=== PATIENT | female | born 1980 | race Two or more races ===

== ENCOUNTER 2018-06-29 17:51 | Inpatient (IN) | payer MEDICAID ==
[~2018-06-29] VITALS: Ht 170.2 cm; Wt 77.4 kg
[2018-06-29 19:23] LABS: Basophils # (auto) 0 uL; Basophils % (auto) 0.3 % (0.0-2.0); Eosinophils # (auto) 0.2 uL; Eosinophils % (auto) 1.4 % (0.0-7.0); Hematocrit 30.6 % (36.0-46.0); Hemoglobin 10.4 g/dL (12.2-16.2); Lymphocytes # (auto) 1.9 uL; Lymphocytes % (auto) 16.3 % (10.0-50.0); Mean Corpuscular Volume 97.2 fL (80.0-100.0); Monocytes # (auto) 0.7 uL; Monocytes % (auto) 6.3 % (0.0-12.0); Neutrophils # (auto) 8.8 uL; Neutrophils % (auto) 75.7 % (37.0-80.0); Platelet Count (auto) 323 10^3/uL (140-450); Red Blood Cells 3.15 10^6/uL (4.0-5.20); Red Cell Distribution Width 12.6 % (11.8-14.3); White Blood Cell 11.7 10^3/uL (4.4-10.8)
[2018-06-29 19:32] LABS: Albumin 3.6 g/dL (3.4-5.0); BUN/Creatinine Ratio 20.8; Calcium 8.1 mg/dL (8.5-10.1); Potassium 3.2 mmol/L (3.5-5.1)
[2018-06-29 19:35] LABS: Bilirubin, Total 0.3 mg/dL (0.2-1.0); Total Protein 6.8 g/dL (6.4-8.2)
[2018-06-29] MEDS ORDERED: SODIUM CHLORIDE 0.9% 1,000 ML IV ONE (20:30)
[2018-06-29 20:40] LABS: Alcohol, Urine < 3.0 mg/dL (0-5); Amphetamine Screen, Urine NEGATIVE (NEGATIVE); Barbiturate Scree,Urine NEGATIVE (NEGATIVE); Benzodiazephine Screen, Urine NEGATIVE (NEGATIVE); Cannabinoid Screen, Urine POSITIVE (NEGATIVE); Cocaine Screen, Urine NEGATIVE (NEGATIVE); Opiate Scree,Urine NEGATIVE (NEGATIVE); Phencyclidine Screen, Urine NEGATIVE (NEGATIVE)
[2018-06-29] MEDS ORDERED: MIDAZOLAM HCL 1MG/1ML-2 ML VIAL ONE (20:40)
[2018-06-29] MEDS ORDERED: fentaNYL CITRATE 100 MCG/2 ML VL ONE (20:40)
[2018-06-29] MEDS ORDERED: MEPERIDINE HCL (50 MG/ML) 1 ML VIAL ONE (20:40)
[2018-06-29] MEDS ORDERED: PROPOFOL 10 MG/ML 20 ML IV ONE (20:42)
[2018-06-29] MEDS ORDERED: DEXAMETHASONE SOD PHOS 10MG/1ML VIAL INJ ONE (20:42)
[2018-06-29] MEDS ORDERED: ceFAZolin 1GM/50ML 50 ML IV ONE (20:51)
[2018-06-29] MEDS ORDERED: hydrALAZINE HCL 20 MG/ML VL IV PRN (21:00)
[2018-06-29] MEDS ORDERED: ONDANSETRON HCL 4 MG/2 ML VIAL IV ONE (21:00)
[2018-06-29] MEDS ORDERED: KETOROLAC TROMETH 30 MG/ML 1ML VIAL IV ONE (21:00)
[2018-06-29] MEDS ORDERED: MIDAZOLAM HCL 1MG/1ML-2 ML VIAL IV PRN (21:00)
[2018-06-29] MEDS ORDERED: HYDROmorphone HCL 2 MG/ML VL IV PRN (21:00)
[2018-06-29] MEDS ORDERED: LABETALOL HCL 5 MG/ML 4ML SYRINGE IV PRN (21:00)
[2018-06-29] MEDS ORDERED: MORPHINE SULFATE 4 MG/ML SYR/VIAL IV PRN ×2 (21:00→22:00)
[2018-06-29] MEDS ORDERED: ePHEDrine SULFATE 50 MG/ML AMP IV PRN (21:00)
[2018-06-29] MEDS ORDERED: ROCURONIUM 10MG/ML 10ML VIAL IV ONE (21:13)
[2018-06-29] MEDS ORDERED: GLYCOPYRROLATE 0.2 MG/ML 1ML VIAL ONE (21:32)
[2018-06-29] MEDS ORDERED: NEOSTIGMINE 1 MG/ML INJ (10mg/10ML VIAL) ONE (21:32)
[2018-06-29 21:47] LABS: INR 0.94 (0.9-1.15); Partial Thromboplastin Time 25.9 sec (23.78-33.04); Prothrombin Time 10.1 sec (9.27-12.13)
[2018-06-29] MEDS ORDERED: ONDANSETRON HCL 4 MG/2 ML VIAL IV PRN (22:00)
[2018-06-29] MEDS ORDERED: MORPHINE SULFATE 4 MG/ML SYR/VIAL IV ONE (22:00)
[2018-06-29 23:06] VITALS: BP 114/64
[2018-06-29 23:30] VITALS: BP 114/64
[2018-06-29] MEDS: LACTATED RINGER'S 1,000 ML IV SCH (23:45)
[2018-06-30] MEDS ORDERED: CITA10TA59 PO (00:05)
[2018-06-30] MEDS ORDERED: LEVO150T10 PO (00:05)
[2018-06-30 02:40] LABS: Urine Bacteria FEW /hpf (None Seen); Urine Blood 2+ /uL (Negative); Urine Mucus FEW (None Seen); Urine Specific Gravity 1.008 (1.001-1.035); Urine WBC 1 /hpf (0 - 5)
[2018-06-30] MEDS: KETOROLAC TROMETH 30 MG/ML 1ML VIAL IV PRN ×2 (04:02→23:03)
[2018-06-30 05:00] VITALS: BP 110/69
[2018-06-30 05:47] LABS: Basophils # (auto) 0 uL; Eosinophils # (auto) 0 uL; Hematocrit 26.1 % (36.0-46.0); Lymphocytes # (auto) 0.5 uL; Mean Corpuscular Hemoglobin 33.2 pg (28.0-32.0); Mean Corpuscular Hgb Conc. 34.3 g/dL (32.0-36.0); Mean Corpuscular Volume 96.6 fL (80.0-100.0); Monocytes # (auto) 0.2 uL; Monocytes % (auto) 1.3 % (0.0-12.0); Neutrophils # (auto) 11.5 uL; Neutrophils % (auto) 94.7 % (37.0-80.0); Platelet Count (auto) 254 10^3/uL (140-450); Red Cell Distribution Width 12.5 % (11.8-14.3); White Blood Cell 12.1 10^3/uL (4.4-10.8)
[2018-06-30] MEDS: ceFAZolin 1GM/50ML 50 ML IV SCH ×3 (05:49→21:43)
[2018-06-30] MEDS: LACTATED RINGER'S 1,000 ML IV SCH ×3 (06:10→23:02)
[2018-06-30] MEDS ORDERED: RHO (D) IMMUNE GLOBULIN 300 MCG INJ IM PRN (07:15)
[2018-06-30] MEDS ORDERED: DOCUSATE SOD 100 MG CAP PO PRN (07:15)
[2018-06-30] MEDS ORDERED: BISACODYL 10 MG RECT SUPP PR PRN (07:15)
[2018-06-30] MEDS: SIMETHICONE 80 MG CHEWABLE TABLET PO SCH ×4 (08:00→21:44)
[2018-06-30 08:10] VITALS: BP 102/58
[2018-06-30] MEDS: HYDROcodone-ACET 10/325MG TAB PO PRN ×3 (09:05→18:23)
[2018-06-30] MEDS: DOCUSATE CALCIUM 240 MG CAP PO SCH (10:18)
[2018-06-30 12:03] VITALS: BP 109/64
[2018-06-30 16:35] VITALS: BP 108/59
[2018-06-30] MEDS ORDERED: THYR60TA2 PO (19:36)
[2018-06-30 21:39] VITALS: BP 105/65
[2018-06-30] MEDS ORDERED: CITALOPRAM HYDROBR 20 MG TAB PO SCH (22:00)
[2018-07-01 04:36] VITALS: BP 104/64
[2018-07-01] MEDS: ceFAZolin 1GM/50ML 50 ML IV SCH ×2 (05:36→13:30)
[2018-07-01] MEDS: SIMETHICONE 80 MG CHEWABLE TABLET PO SCH ×3 (05:36→18:32)
[2018-07-01] MEDS: ACETAMINOPHEN 500 MG TAB PO PRN ×2 (05:37→12:07)
[2018-07-01] MEDS: KETOROLAC TROMETH 30 MG/ML 1ML VIAL IV PRN ×3 (05:47→18:33)
[2018-07-01] MEDS: LACTATED RINGER'S 1,000 ML IV SCH ×3 (05:47→13:51)
[2018-07-01] MEDS ORDERED: LEVOTHYROXINE SODIUM 50 MCG TAB PO SCH (07:00)
[2018-07-01 08:42] VITALS: BP 109/67
[2018-07-01] MEDS ORDERED: BISACODYL 10 MG RECT SUPP PR ONE (09:00)
[2018-07-01] MEDS ORDERED: CITALOPRAM HYDROBR 20 MG TAB PO SCH (10:00)
[2018-07-01] MEDS: DOCUSATE CALCIUM 240 MG CAP PO SCH (10:46)
[2018-07-01 13:00] VITALS: BP 95/53
[2018-07-01 17:00] VITALS: BP 119/67
[2018-07-01 18:44] VITALS: BP 119/67
== END 2018-07-01 19:25 | disposition home or self-care (01) | DRG 545 ==
LOC: ER 17:51 → OR 1 20:34 → TELE-CENTR 20:35
PROVIDERS: ADMIT Obstetrics & Gynecology; ATTEND Obstetrics & Gynecology
PROC: 10T20ZZ Resection of Products of Conception, Ectopic, Open Approach (ICD-10-PCS; 2018-06-29)
PROC: 0W9G0ZZ Drainage of Peritoneal Cavity, Open Approach (ICD-10-PCS; 2018-06-29)
PROC: 0UT60ZZ Resection of Left Fallopian Tube, Open Approach (ICD-10-PCS; principal; 2018-06-29 20:52)
DX: O00.102 Left tubal pregnancy without intrauterine pregnancy (principal); K66.1 Hemoperitoneum; E89.0 Postprocedural hypothyroidism; F17.210 Nicotine dependence, cigarettes, uncomplicated; Z85.850 Personal history of malignant neoplasm of thyroid
CPT/HCPCS: 36415; 76801; 76817; 80053; 80307; 81001; 84702; 85025; 85610; 85730; 86850; 86900; 86901; 96361; 96374; 96375; J0690; J1100; J1885; J2250; J2704